=== PATIENT | female | born 1960 | race Caucasian/White ===

== ENCOUNTER 2017-08-12 19:31 | Emergency (ER) | payer OTHER ==
--- NOTE | 2017-08-12 20:21 | ER Document Report ---
ED Medical Screen (RME) - General Chief Complaint: Near Syncope Stated Complaint: WEAKNESS Time Seen by Provider: 08/12/17 20:21 Notes: Patient is sent from urgent care for workup of near syncope today. Patient states she was shopping at [employer] but she became very lightheaded and felt like she was going to pass out. Her states that she was very pale. She states for the last week she has had some left arm and left shoulder pain. TRAVEL OUTSIDE OF THE [place] IN LAST 30 DAYS: No - Related Data Allergies/Adverse Reactions: Penicillins Allergy (Verified 08/12/17 20:13) Home Medications: Current Home Medications Cetirizine HCl [Zyrtec 10 mg Tablet] 1 tab PO DAILY 08/12/17 [History] Montelukast Sodium [Singulair 10 mg Tablet] 1 tab PO DAILY 08/12/17 [History] Past Medical History Psychiatric Medical History: Reports: Hx Anxiety Past Surgical History: Reports: Hx Breast Surgery, Hx Tonsillectomy, Hx Tubal Ligation - Immunizations Hx Diphtheria, Pertussis, Tetanus Vaccination: Yes Physical Exam - Vital signs Vitals: Temp Pulse Resp BP Pulse Ox 97.8 F 64 16 115/52 L 97 08/12/17 19:53 08/12/17 19:53 08/12/17 19:53 08/12/17 19:53 08/12/17 19:53 Course - Vital Signs Vital signs: Temp Pulse Resp BP Pulse Ox 97.8 F 64 16 115/52 L 97 08/12/17 19:53 08/12/17 19:53 08/12/17 19:53 08/12/17 19:53 08/12/17 19:53
--- NOTE | 2017-08-12 21:03 | ER Document Report ---
ED General - General Chief Complaint: Near Syncope Stated Complaint: WEAKNESS Time Seen by Provider: 08/12/17 20:21 Notes: Patient is a 57-year-old female that comes emergency department for chief complaint of an episode earlier where she was walking around in the store and became lightheaded, she states that she felt dizzy, her stated she looked pale, she felt slightly nauseated. She denies chest pain, palpitations, syncope, shortness of breath. She states that she felt poorly until her daughter gave her a soda, after drinking a soda her symptoms resolved. She states that she still felt slightly off until he went to eat at home and then afterward she has felt normal since. She states she was seen in urgent care and referred to the emergency department. She also states that she has been having left shoulder/rotator cuff pain for the past week because she injured her shoulder. She denies change in pain. Only past medical history reported are seasonal allergies, tubal ligation. Former smoker. TRAVEL OUTSIDE OF THE [place] IN LAST 30 DAYS: No - Related Data Allergies/Adverse Reactions: Penicillins Allergy (Verified 08/12/17 20:13) Home Medications: Current Home Medications Cetirizine HCl [Zyrtec 10 mg Tablet] 1 tab PO DAILY 08/12/17 [History] Montelukast Sodium [Singulair 10 mg Tablet] 1 tab PO DAILY 08/12/17 [History] Past Medical History - General Information source: Patient - Social History Smoking Status: Former Smoker Frequency of alcohol use: None Drug Abuse: None Lives with: Family Family History: Hypertension, Other - Daughter in her 30s secondary to cardiac arrhythmia Patient has suicidal ideation: No Patient has homicidal ideation: No Renal/ Medical History: Denies: Hx Peritoneal Dialysis Psychiatric Medical History: Reports: Hx Anxiety Past Surgical History: Reports: Hx Breast Surgery, Hx Tonsillectomy, Hx Tubal Ligation - Immunizations Hx Diphtheria, Pertussis, Tetanus Vaccination: Yes Review of Systems - Review of Systems Constitutional: No symptoms reported EENT: No symptoms reported Cardiovascular: See HPI Respiratory: No symptoms reported Gastrointestinal: No symptoms reported Genitourinary: No symptoms reported Female Genitourinary: No symptoms reported Musculoskeletal: No symptoms reported Skin: No symptoms reported Hematologic/Lymphatic: No symptoms reported Neurological/Psychological: See HPI Physical Exam - Vital signs Vitals: Temp Pulse Resp BP Pulse Ox 97.8 F 64 16 115/52 L 97 08/12/17 19:53 08/12/17 19:53 08/12/17 19:53 08/12/17 19:53 08/12/17 19:53 Interpretation: Normal - General General appearance: Appears well, Alert - HEENT Head: Normocephalic, Atraumatic Eyes: Normal Pupils: PERRL - Respiratory Respiratory status: No respiratory distress Chest status: Nontender Breath sounds: Normal Chest palpation: Normal - Cardiovascular Rhythm: Regular Heart sounds: Normal auscultation Murmur: No - Abdominal Inspection: Normal Distension: No distension Bowel sounds: Normal Tenderness: Nontender Organomegaly: No organomegaly - Back Back: Normal, Nontender - Extremities General upper extremity: Normal inspection, Nontender, Normal color, Normal ROM , Normal temperature General lower extremity: Normal inspection, Nontender, Normal color, Normal ROM , Normal temperature, Normal weight bearing. No: Nolan's sign - Neurological Neuro grossly intact: Yes Cognition: Normal Orientation: AAOx4 [place] Coma Scale Eye Opening: Spontaneous [place] Coma Scale Verbal: Oriented [place] Coma Scale Motor: Obeys Commands [place] Coma Scale Total: 15 Speech: Normal Motor strength normal: LUE, RUE, LLE, RLE Sensory: Normal - Psychological Associated symptoms: Normal affect, Normal mood - Skin Skin Temperature: Warm Skin Moisture: Dry Skin Color: Normal Course - Re-evaluation Re-evalutation: EKG sinus rhythm with no T-wave inversions or ST segment changes in consecutive leads. No delta wave, normal CO interval. CBC unremarkable, chemistry unremarkable including blood glucose, urine unremarkable. Monitoring of the patient unremarkable with no events. Patient's symptoms resolved when she ate. She admits that she only had 2 donuts for breakfast and then nothing all day until she almost passed out. Suspect hypoglycemia. Recommended protein in her diet, keeping something nearby to eat in case her blood sugar drops too low, primary care follow-up, and discussed return precautions. and patient state understanding and agreement. - Vital Signs Vital signs: Temp Pulse Resp BP Pulse Ox 97.8 F 64 21 H 109/55 L 97 08/12/17 19:53 08/12/17 19:53 08/12/17 22:50 08/12/17 22:50 08/12/17 22:50 - Laboratory Result Diagrams: 08/12/17 20:41 08/12/17 20:41 Laboratory results interpreted by me: 08/12/17 08/12/17 20:41 20:41 Alkaline Phosphatase 155 H Ur Leukocyte Esterase TRACE H Urine Ascorbic Acid 40 H Discharge - Discharge Clinical Impression: Lightheadedness Condition: Stable Disposition: HOME, SELF-CARE Additional Instructions: Your workup today and evaluation do not show any concerning abnormalities. Your symptoms earlier today were most likely related to hypoglycemia (low blood sugar). Increase protein in your diet to avoid this, keep a sugar source nearby to take if symptoms develop again, follow-up with primary care for additional management. Return for any concerning symptoms. Referrals: MARCO A ANN MD [Primary Care Provider] - Follow up as needed
[2017-08-12 21:08] LABS: APPEARANCE,URINE CLEAR; BILIRUBIN,URINE NEGATIVE (NEGATIVE); GLUCOSE, URINE NEGATIVE (NEGATIVE); KETONES,URINE NEGATIVE (NEGATIVE); LEUKOCYTE ESTERASE,URINE TRACE (NEGATIVE); NITRITE,URINE NEGATIVE (NEGATIVE); PROTEIN,URINE NEGATIVE (NEGATIVE); URINE SPECIFIC GRAVITY 1.003; UROBILINOGEN,URINE NEGATIVE mg/dL (<2.0)
[2017-08-12 21:16] LABS: ALANINE AMINOTRANSFERASE 42 U/L (9-52); ALBUMIN 4.6 g/dL (3.5-5.0); ALKALINE PHOSPHATASE 155 U/L (38-126); ANION GAP 10 (5-19); ASPARTATE AMINO TRANSFERASE 30 U/L (14-36); BILIRUBIN,TOTAL 0.6 mg/dL (0.2-1.3); BLOOD UREA NITROGEN 11 mg/dL (7-20); CARBON DIOXIDE 29 mmol/L (22-30); CHLORIDE 104 mmol/L (98-107); CREATININE RESULT 0.58 mg/dL (0.52-1.25); GLUCOSE 92 mg/dL (75-110); POTASSIUM 4.3 mmol/L (3.6-5.0); SODIUM 143.4 mmol/L (137-145)
[2017-08-12 21:17] LABS: ABSOLUTE BASOPHILS # (AUTO) 0.1 10^3/uL (0.0-0.2); ABSOLUTE LYMPHOCYTES (AUTO) 2.3 10^3/uL (0.5-4.7); ABSOLUTE MONOCYTES (AUTO) 0.5 10^3/uL (0.1-1.4); ABSOLUTE NEUT (AUTO) 6.3 10^3/uL (1.7-8.2); BASOPHILS % (AUTO) 0.6 % (0-2); EOSINOPHILS % (AUTO) 0.5 % (0-6); HEMATOCRIT 41.7 % (36.0-47.0); HEMOGLOBIN 14.6 g/dL (12.0-15.5); HGB HCT DIFFERENCE 2.1; MEAN CORPUSCULAR HEMOGLOBIN 29.8 pg (27.0-33.4); MEAN CORPUSCULAR HGB CONC 35.1 g/dL (32.0-36.0); MEAN CORPUSCULAR VOLUME 85 fl (80-97); MONOCYTES % (AUTO) 5.7 % (3-13); RED BLOOD COUNT 4.91 10^6/uL (3.72-5.28); SEGMENTED NEUTROPHILS % (AUTO) 68.2 % (42-78); WHITE BLOOD COUNT 9.3 10^3/uL (4.0-10.5)
[2017-08-12 22:53] VITALS: BP 109/55
--- NOTE | 2017-08-14 12:55 | EKG REPORT ---
SEVERITY:- NORMAL ECG - SINUS RHYTHM : Confirmed by: Aly Cross MD 14-Aug-2017 12:54:28
== END 2017-08-12 22:53 | disposition home or self-care (01) ==
LOC: ER 19:31
DX: R42 Dizziness and giddiness (principal); M25.512 Pain in left shoulder; Z87.891 Personal history of nicotine dependence; Z88.0 Allergy status to penicillin; Z82.49 Family history of ischemic heart disease and other diseases of the circulatory system
CPT/HCPCS: 36415; 80053; 81001; 84484; 85025; 93005; 93010; 99284